=== PATIENT | female | born 1955 | race African-American/Black ===

== ENCOUNTER 2019-01-02 17:42 | Emergency (ER) | payer OTHER ==
--- NOTE | 2019-01-02 18:11 | Emergency Department Report ---
Vomiting/Diarrhea - [facility] Chief Complaint: Nausea/Vomiting/Diarrhea Stated Complaint: N/V Time Seen by Provider: 01/02/19 18:08 Duration: Today Severity: moderate Nausea/Vomiting Severity: Moderate Diarrhea Severity: None Pain Severity: None Symptoms: Yes Able to Tolerate Fluids, Yes Recent Unusual Foods, No Watery Diarrhea, No Bloody diarrhea, No Fever, No Recent Untreated Water, No Recent use of Antibiotics, No Family w/ Similar Symptoms, No Contacts w/ Similar Symptoms, No Rash, No Hematuria, No Recent URI Symptoms Other History: Patient is a 63-year-old female that presents emergency room with complaints of nausea and vomiting 2 that started 2 hours ago. Patient states that 2 hours ago she had fish and Rice and approximately 40 minutes later she became nauseated. Patient states she's vomited twice. Patient denies abdominal pain. Patient denies blood in her vomitus. Patient denies passing out. Patient denies dizziness. Patient states she feels weak after vomiting so much. ED Review of Systems ROS: Stated complaint: N/V Other details as noted in HPI Constitutional: denies: chills, fever Eyes: denies: eye pain, eye discharge, vision change ENT: denies: ear pain, throat pain Respiratory: denies: cough, shortness of breath, wheezing Cardiovascular: denies: chest pain, palpitations Endocrine: no symptoms reported Gastrointestinal: nausea, vomiting. denies: abdominal pain, diarrhea Genitourinary: denies: urgency, dysuria, discharge Musculoskeletal: denies: back pain, joint swelling, arthralgia Skin: denies: rash, lesions Neurological: denies: headache, weakness, paresthesias Psychiatric: denies: anxiety, depression Hematological/Lymphatic: denies: easy bleeding, easy bruising ED Past Medical Hx - Past Medical History Previous Medical History?: Yes Hx Hypertension: Yes Additional medical history: Hyperlipidemia - Surgical History Past Surgical History?: No - Family History Family history: no significant - Social History Smoking Status: Never Smoker Substance Use Type: None - Medications Home Medications: Home Medications Medication Instructions Recorded Confirmed Last Taken Type Ondansetron [Zofran Odt] 4 mg PO Q8HR PRN #15 tab.rapdis 01/02/19 Unknown Rx Vomiting Diarrhea Exam - Exam General: Vital signs noted. No distress. Alert and acting appropriately. HEENT: Yes Moist Mucous Membranes, No Pharyngeal Erythema, No Pharyngeal Exudates, No Rhinorrhea, No Conjuctival Injection, No Frontal Tenderness, No Maxillary Tenderness Neck: No Adenopathy, No Rigidity Lungs: Yes Clear Lung Sounds, Yes Good Air Exchange, No Wheezes, No Stridor, No Cough, No Nasal Flaring, No Retractions, No Use of Accessory Muscles Heart exam: Regular: Yes, Murmur: No, Tachycardia: No Abdomen: Tenderness: No, Peritoneal Signs: No, Distention: No, Hyperactive Bowel sounds: No Skin exam: Rash: No, Edema: No, Normal turgor: Yes Neurologic: Alert and oriented, no deficits. Musculoskeletal: Unremarkable. Exam: The patient appeared well nourished and normally developed. Vital signs as documented. Head exam is unremarkable. No scleral icterus or corneal arcus noted. Neck is without jugular venous distension, thyromegaly, or carotid bruits. Lungs are clear to auscultation and percussion. Cardiac exam reveals Rhythm is regular. First and second heart sounds normal. No murmurs, rubs or gallops. Abdominal exam reveals normal bowel sounds, no masses, no organomegaly. Extremities are nonedematous. ED Course - Reevaluation(s) Reevaluation #1: Discussed all results with patient and family. Patient given discharge instruct ions. Family and patient voice understanding of discharge instructions. Patient is stable for discharge. Patient will be discharged home. 01/02/19 20:41 ED Medical Decision Making - Lab Data Result diagrams: 01/02/19 18:45 01/02/19 18:54 - Medical Decision Making Patient is a 63-year-old female that presents emergency room with nausea and vomiting. Patient has not vomited in the ER. Patient tolerated by mouth challenge. Patient is stable for discharge. Patient's labs unremarkable. Patient given fluids and Zofran. Patient responded well to therapy. Patient discharged home. Patient stable for discharge. Patient tolerated by mouth challenge. Patient has not had any nausea vomiting in the ER. Patient stated before discharge that she felt better. - Differential Diagnosis gastroenteritis. Nausea and vomiting. Critical care attestation.: If time is entered above; I have spent that time in minutes in the direct care of this critically ill patient, excluding procedure time. ED Disposition Clinical Impression: Gastroenteritis Nausea & vomiting Qualifiers: Vomiting type: unspecified Vomiting Intractability: non-intractable Qualified Code(s): R11.2 - Nausea with vomiting, unspecified Disposition: DC-01 TO HOME OR SELFCARE Is pt being admited?: No Does the pt Need Aspirin: No Condition: Stable Instructions: Gastroenteritis (ED), Acute Nausea and Vomiting (ED) Additional Instructions: Patient to follow up with primary care in 2-3 days. Patient to return to ER if condition worsens. Patient to increase water. Patient eat a Luly diet. Patient to rest. Patient to take Tylenol or ibuprofen when necessary pain. Prescriptions: Ondansetron [Zofran Odt] 4 mg PO Q8HR PRN #15 tab.rapdis PRN Reason: Nausea And Vomiting Referrals: PAUL STONE MD [Primary Care Provider] - 2-3 Days Time of Disposition: 20:35
[2019-01-02] MEDS ORDERED: NACL 0.9% 1000 ML 1,000 ML IV ONE (18:45)
[2019-01-02] MEDS ORDERED: ZOFRAN IV ONE (18:45)
[2019-01-02 19:51] LABS: Basophils % (Auto) 0.1 % (0.0-1.8); Eosinophils % (Auto) 0.4 % (0.0-4.3); Hematocrit 31.9 % (30.3-42.9); Hemoglobin 10.7 gm/dl (10.1-14.3); Lymphocytes # (Auto) 0.7 K/mm3 (1.2-5.4); Lymphocytes % (Auto) 16.6 % (13.4-35.0); Mean Corpuscular HGB Conc 34 % (30-34); Mean Corpuscular Volume 91 fl (79-97); Monocytes # (Auto) 0.2 K/mm3 (0.0-0.8); Monocytes % (Auto) 5.4 % (0.0-7.3); Platelet Count 172 K/mm3 (140-440); Red Blood Count 3.51 M/mm3 (3.65-5.03); Red Cell Distribution Width 14.4 % (13.2-15.2)
[2019-01-02 20:11] VITALS: BP 128/74
[2019-01-02 20:18] LABS: Alanine Aminotransferase 21 units/L (7-56); Albumin 3.8 g/dL (3.9-5); BUN/Creatinine Ratio 22; Blood Urea Nitrogen 13 mg/dL (7-17); Calcium 8.6 mg/dL (8.4-10.2); Hemolysis Index 25
== END 2019-01-02 21:20 | disposition home or self-care (01) ==
LOC: ED 17:42
DX: K52.9 Noninfective gastroenteritis and colitis, unspecified (principal); I10 Essential (primary) hypertension; E78.5 Hyperlipidemia, unspecified
CPT/HCPCS: 36415; 80053; 85025; 96367; 96374; 99284; J2405; J7030

== ENCOUNTER 2020-11-16 10:06 | Outpatient (CLI) | payer OTHER ==
--- NOTE | 2020-11-16 12:14 | Ultrasound Report ---
US SOFT TISSUE HEAD AND NECK INDICATION / CLINICAL INFORMATION: ACUTE LYMPHADENITIS UNSPECIFIED. TECHNIQUE: Limited ultrasound evaluation of the submandibular region in the area of interest as indicated by the patient and ordering provider. Grayscale and color flow techniques were used. COMPARISON: None available. FINDINGS: 0.9 x 0.4 x 1.0 cm submandibular focus without typical lymph node morphology. No definite aggressive features are visualized. IMPRESSION: 1. Small subcentimeter focus in the region of interest. Appearance is not classic for a lymph node, h owever no aggressive features are present. Consider short-term follow-up in 8-12 weeks for further ev aluation. Signer Name: Aydin Alexandra MD Signed: 11/16/2020 12:10 PM Workstation Name: [id number]
== END 2020-11-16 10:07 | disposition home or self-care (01) ==
LOC: US 10:06
PROVIDERS: ATTEND Surgery
DX: L04.9 Acute lymphadenitis, unspecified (principal)
CPT/HCPCS: 76536

== ENCOUNTER 2020-11-20 07:17 | Day surgery (SDC) | payer OTHER ==
[~2020-11-20 07:17] MED LIST: ACETAMINOPHEN 500 MG TAB PO SCH; LACTATED RINGERS 1,000 ML IV SCH; MIDAZOLAM 2 MG/2 ML INJ IV NR
[2020-11-20] MEDS ORDERED: BUPIVACAINE/PF (0.25%) 2.5 MG/ML 30 ML VIAL INFILTRATI ONE (09:15)
[2020-11-20] MEDS ORDERED: LIDOCAINE (1%) 10 MG/1 ML VIAL 20 ML MDV INFILTRATI ONE (09:15)
[2020-11-20] MEDS ORDERED: BACITRACIN ZINC OINT 28.4 GM TP ONE (09:30)
--- NOTE | 2020-11-20 09:43 | Procedure Note ---
Date of procedure: 11/20/20 Pre-op diagnosis: scalp cyst Post-op diagnosis: same Procedure: excision scalp cyst Findings: HPI and Indication: 65 yo F with very small symptomatic scalp cyst who was seen in the surgery clinic and requested excision. She also had a soft tissue mass felt to be enlarged lymph node on exam. U/s was performed which showed 0.9x0.4x1 cm submandibular focus without typical lymph node morphology, no definite aggressive features. Patient was given the option to have this excised as well vs short term follow up with repeat u/s. Patient and daughter opted for u/s follow up. Consent verified on chart for scalp excision. Procedure in detail: Patient identified in preop area and brought to minor procedure room on stretcher. Patient in supine position. Patient was asked to localize area of cyst x3 and this marked. Hair parted and gelled out of field with lubricant. A small amount of hair was clipped. Area prepped and draped in usual sterile fashion. Local anesthetic infiltrated into skin and a 1 cm incision was made over the area of concern. Dissection with hemostat through subcutaneous tissue. The cyst was very diminutive and could not be removed intact. It was removed piecemeal and no significant tissue sample to send for pathology. Examination of would did not reveal any retained cyst content. The wound was irrigated and hemostasis achieved using electrocautery. Wound closed with 2 interrupted 3-0 monocryl sutures. The skin was cleansed and bacitracin applied to incision. The patient tolerated the procedure well. All sharps disposed of appropriately. Patient discharged to home in stable condition. Anesthesia: local Surgeon: KELIN ELISE Estimated blood loss: minimal Pathology: none Condition: stable Disposition: other (HOME)
[2020-11-20 10:14] VITALS: BP 153/94
== END 2020-11-20 07:18 | disposition home or self-care (01) ==
LOC: OR 07:17
PROVIDERS: ATTEND Surgery
DX: R22.0 Localized swelling, mass and lump, head (principal); L72.3 Sebaceous cyst; L04.9 Acute lymphadenitis, unspecified; I86.8 Varicose veins of other specified sites; G43.909 Migraine, unspecified, not intractable, without status migrainosus; E78.00 Pure hypercholesterolemia, unspecified; I10 Essential (primary) hypertension; K21.9 Gastro-esophageal reflux disease without esophagitis; D64.9 Anemia, unspecified; Z20.822 Contact with and (suspected) exposure to COVID-19; Z98.890 Other specified postprocedural states; Z79.899 Other long term (current) drug therapy; Z98.49 Cataract extraction status, unspecified eye
CPT/HCPCS: 11420; U0003

== ENCOUNTER 2022-01-17 07:33 | Day surgery (SDC) | payer MEDICARE ==
[~2022-01-17 07:33] MED LIST changes: -ACETAMINOPHEN 500 MG TAB PO SCH
[2022-01-17] MEDS ORDERED: BACTERIOSTATIC SODIUM CHLORIDE 0.9% 30 ML VIAL INFILTRATI ONE (08:25)
--- NOTE | 2022-01-17 09:44 | Anesthesia Consultation ---
Anesthesia Consult and Med Hx Date of service: 01/17/22 - Airway Anesthetic Teeth Evaluation: Good (might right lower molars/premolars) ROM Head & Neck: Adequate Mental/Hyoid Distance: Adequate Mallampati Class: Class III Intubation Access Assessment: Possibly Difficult - Pre-Operative Health Status ASA Pre-Surgery Classification: ASA2 Proposed Anesthetic Plan: General - Pulmonary Hx Smoking: No Hx Respiratory Symptoms: No Hx Sleep Apnea: No (GREG PRE SCREEN LOW RISK) - Cardiovascular System Hx Hypertension: Yes (last meds 10 days ago; reports home SBP 130s) Hx Heart Attack/AMI: No - Central Nervous System CVA: No - Gastrointestinal Hx Gastroesophageal Reflux Disease: Yes (rare) - Endocrine Hx Renal Disease: No Hx Liver Disease: No Hx Insulin Dependent Diabetes: No Hx Non-Insulin Dependent Diabetes: No Hx Hypothyroidism: No - Additional Comments Anesthesia Medical History Comments: No hx anesthetic complications.
--- NOTE | 2022-01-17 09:45 | Anesthesia Day of Surgery ---
Anesthesia Day of Surgery - Day of Surgery Patient Examined: Yes Patient H&P Reviewed: Yes Patient is NPO: Yes
[2022-01-17] MEDS ORDERED: ONDANSETRON 4 MG/2 ML INJ IV PRN (10:00)
[2022-01-17] MEDS ORDERED: HYDROcodone/ACETAMINOPHEN 5-325 MG TAB PO PRN (10:00)
[2022-01-17] MEDS ORDERED: ceFAZolin/Water 2 GM/20 ML 2 GM/20 ML SYRINGE IV ONE (10:46)
[2022-01-17] MEDS ORDERED: MIDAZOLAM 2 MG/2 ML INJ ONE (10:56)
[2022-01-17] MEDS ORDERED: LIDOCAINE MPF (2%) 20 MG/1 ML VIAL 5 ML ONE (10:57)
[2022-01-17] MEDS ORDERED: fentaNYL 100 MCG/2 ML INJ ONE (10:57)
[2022-01-17] MEDS ORDERED: propofoL 200 MG/20 ML VIAL IV ONE (10:57)
[2022-01-17] MEDS ORDERED: ceFAZolin/STERILE WATER 2 GM/20 ML SYRINGE IV SCH (11:00)
[2022-01-17] MEDS ORDERED: LIDOCAINE (1%) 10 MG/1 ML VIAL 20 ML MDV ONE (11:01)
[2022-01-17] MEDS ORDERED: BUPIVACAINE/PF (0.5%) 5 MG/1 ML 10 ML VIAL INFILTRATI ONE (11:02)
[2022-01-17] MEDS ORDERED: BUPIVACAINE/PF (0.25%) 2.5 MG/ML 10 ML VIAL INFILTRATI ONE (11:39)
[2022-01-17] MEDS ORDERED: WATER FOR IRRIG STERILE 1,000 ML BOTTLE IR ONE (11:39)
[2022-01-17] MEDS ORDERED: LIDOCAINE (1%) 10 MG/1 ML VIAL 20 ML MDV INFILTRATI ONE (11:39)
[2022-01-17] MEDS ORDERED: GLYCOPYRROLATE 0.4 MG/2 ML INJ ONE (11:44)
[2022-01-17] MEDS ORDERED: ONDANSETRON 4 MG/2 ML INJ ONE (11:44)
[2022-01-17] MEDS ORDERED: NEOSTIGMINE 10MG/10 ML INJ MDV ONE (11:44)
--- NOTE | 2022-01-17 12:05 | Short Stay Summary ---
Short Stay Documentation Date of service: 01/17/22 - History Principal diagnosis: anterior neck soft tissue mass H&P: obtained from office - Allergies and Medications Current Medications: Allergies No Known Allergies Allergy (Verified 11/08/13 07:36) Home Medications Medication Instructions Recorded Confirmed Last Taken Type Omeprazole 40 mg PO DAILY 11/13/20 01/17/22 12/28/21 History Simvastatin 20 mg PO QHS 11/13/20 01/17/22 01/16/22 20:30 History lisinopriL [Lisinopril] 20 mg PO QDAY 01/17/22 01/17/22 01/07/22 History Active Medications Hydrocodone Bitart/Acetaminophen (Hydrocodone/Acetaminophen 5-325 Mg Tab) 2 each PO ONCE PRN PRN Reason: Pain, Moderate (4-6) Stop: 01/17/22 17:00 Cefazolin Sodium (Cefazolin/Sterile Water 2 Gm/20 Ml Syringe) 2 gm IV PREOP JAY Stop: 01/17/22 15:00 Lactated Ringer's (Lactated Ringers) 1,000 mls @ 100 mls/hr IV DIRECT JAY Stop: 01/17/22 23:59 Last Admin: 01/17/22 09:04 Dose: 100 mls/hr Ondansetron HCl (Ondansetron 4 Mg/2 Ml Inj) 4 mg IV ONCE PRN PRN Reason: Nausea And Vomiting Stop: 01/17/22 17:00 - Brief post op/procedure progress note Date of procedure: 01/17/22 Pre-op diagnosis: anterior neck soft tissue mass Post-op diagnosis: same Procedure: excision anterior neck soft tissue mass Anesthesia: GETA, local Findings: 1 cm cyst of anterior neck Surgeon: KELIN ELISE Estimated blood loss: minimal Pathology: list (cyst of anterior neck) Specimen disposition: to lab Condition: stable - Hospital course Hospital course: Pt observed in PACU and discharged to home in stable condition - Disposition Condition at discharge: Good Short Stay Discharge Plan Activity: no restrictions Diet: regular Wound: open to air, per your surgeon's advice Additional Instructions: Please see printed discharge papers Follow up with: PAUL STONE MD [Primary Care Provider] - 7 Days KELIN ELISE DO [Staff Physician] - 14 Days Prescriptions: traMADoL [Ultram 50 MG tab] 50 mg PO Q6HR PRN #5 tablet PRN Reason: Pain , Severe (7-10)
--- NOTE | 2022-01-17 12:44 | Operative Report ---
Operative Report Operative Report: Date of procedure: 01/17/22 Pre-op diagnosis: anterior neck soft tissue mass Post-op diagnosis: same Procedure: excision anterior neck soft tissue mass Anesthesia: GETA, local Findings: 1 cm cyst of anterior neck Surgeon: KELIN ELISE Estimated blood loss: minimal Pathology: list (cyst of anterior neck) Specimen disposition: to lab Condition: stable Hospital course: Pt observed in PACU and discharged to home in stable condition Condition at discharge: Good Indication: Patient is a 66-year-old female who presented to the office for a workup of a mass of the anterior neck. She was sent for an ultrasound which was unremarkable. There was a 1.5 cm mobile soft tissue mass in the superficial tissues of the anterior midline neck. This was bothersome to the patient and she wanted to have it excised. The patient was set up for an elective excision. After all risks were discussed and questions answered, consent was signed in the office. Procedure in detail: Patient was identified in the preoperative area and operative site marked. She was taken back to the operating room, placed on the operating room table in supine position. After anesthesia was induced, a shou lder roll was placed and the neck slightly hyperextended. The carrier neck was prepped and draped in usual sterile fashion and a timeout was performed. An incision was made along Mena's lines over the area of the palpable mass using a 15 blade. Dissection was carried down through subcutaneous tissue using a hemostat. Once the mass was identified it was grasped and dissected free from the surrounding subcutaneous tissue and muscle using a combination of blunt dissection and electrocautery. Once the entire mass was excised it was examined. This appeared to be a cyst with clear gelatinous fluid. It measured approximately 1 cm. Local anesthetic was injected into the skin and subcutaneous tissue. The wound was irrigated and hemostasis very carefully ensured. The muscle was reapproximated using interrupted 3-0 Vicryl stitches x2. The deep dermal layer was approximated using interrupted 3-0 Vicryl stitches. The skin was approximated using 4-0 Monocryl running subcuticular stitch and skin glue. After the skin wound was dry, a rolled up 2 x 2 gauze was placed over the incision and secured with a small Tegaderm. At the end of the case, all sponge, instrument, sharp counts were correct 2. The patient was awoken from anesthesia and taken to PACU in stable condition.
--- NOTE | 2022-01-17 14:29 | Post Anesthesia Evaluation ---
- Post Anesthesia Evaluation Patient Participated: Yes Airway Patent: Yes Stable Respiratory Function: Yes Nausea/Vomiting: No Temp > 96.8F: Yes Pain Manageable: Yes Adequeate Hydration: Yes Anesthesia Complications: No
[2022-01-17 14:37] VITALS: BP 126/78
== END 2022-01-17 13:50 | disposition home or self-care (01) ==
LOC: OR 07:33
PROVIDERS: ATTEND Surgery
DX: R22.1 Localized swelling, mass and lump, neck (principal); Q89.2 Congenital malformations of other endocrine glands; M79.89 Other specified soft tissue disorders; E78.00 Pure hypercholesterolemia, unspecified; I10 Essential (primary) hypertension; K21.9 Gastro-esophageal reflux disease without esophagitis; D64.9 Anemia, unspecified; Z79.899 Other long term (current) drug therapy; Z98.49 Cataract extraction status, unspecified eye; Z98.890 Other specified postprocedural states
CPT/HCPCS: 60280; 88305; J0690; J1815; J2250; J2405; J2704; J2710; J3010; J3490; J7120; 88304